=== PATIENT | female | born 1935 | race Caucasian/White ===

== ENCOUNTER → 2016-09-18 | Outpatient (CLI) | payer MEDICARE ==
[~2016-09-18] MED LIST: ALEN40TA PO; ASPI1TAB69 PO; COZA25TA PO; HYDR12.56 PO; LEVO.05 PO; REFR0.5D4 EACH EYE; ROSU10 PO; THERTAB PO; VALA500T PO
[2016-09-18 07:23] LABS: AUTOMATED NEUTROPHIL # 1.2 TH/MM3 (1.8-7.7); BASOPHIL % 1.2 % (0.0-2.0); EOSINOPHIL % 1.2 % (0.0-4.0); HEMATOCRIT 36.8 % (35.0-46.0); HEMO FLAGS DIFF FINAL; LYMPHOCYTE # 1.4 TH/MM3 (1.0-4.8); MEAN CELL VOLUME 94.9 FL (80.0-100.0); MEAN CORPUSCULAR HEMOGLOBIN 31.8 PG (27.0-34.0); MEAN CORPUSCULAR HGB CONC 33.5 % (32.0-36.0); MONO % 13.7 % (0.0-8.0); NEUT % 38.9 % (16.0-70.0); PLATELET COUNT 198 TH/MM3 (150-450); RED BLOOD COUNT 3.88 MIL/MM3 (4.00-5.30); RED CELL DISTRIBUTION WIDTH 14.6 % (11.6-17.2); WHITE BLOOD COUNT 3.1 TH/MM3 (4.0-11.0)
[2016-09-18 08:01] LABS: ALKALINE PHOSPHATASE 65 U/L (45-117); ALT (GPT) 46 U/L (10-53); ANION GAP 7 MEQ/L (5-15); AST (GOT) 34 U/L (15-37); BICARBONATE 28.4 MEQ/L (21.0-32.0); BLOOD UREA NITROGEN 18 MG/DL (7-18); CHLORIDE 107 MEQ/L (98-107); GLOMERULAR FILTRATION RATE 67 ML/MIN (>89); GLUCOSE,FASTING 90 MG/DL (74-99); POTASSIUM 4.6 MEQ/L (3.5-5.1); SODIUM (NA) 142 MEQ/L (136-145); TOTAL BILIRUBIN ADULT 0.2 MG/DL (0.2-1.0)
== END ==
LOC: CLAB 06:51
PROVIDERS: ATTEND Allergy & Immunology
DX: M19.90 Unspecified osteoarthritis, unspecified site (principal); M75.00 Adhesive capsulitis of unspecified shoulder; G70.00 Myasthenia gravis without (acute) exacerbation; Z79.899 Other long term (current) drug therapy
CPT/HCPCS: 36415; 80053; 84443; 85025

== ENCOUNTER → 2016-10-09 | Outpatient (CLI) | payer MEDICARE ==
[2016-10-09 07:19] LABS: BICARBONATE 27.3 MEQ/L (21.0-32.0); POTASSIUM 4.2 MEQ/L (3.5-5.1)
== END ==
LOC: CLAB 06:36
PROVIDERS: ATTEND Internal Medicine Interventional Cardiology
DX: I25.118 Atherosclerotic heart disease of native coronary artery with other forms of angina pectoris (principal); R94.31 Abnormal electrocardiogram [ECG] [EKG]
CPT/HCPCS: 36415; 80048

== ENCOUNTER → 2017-03-12 | Outpatient (CLI) | payer MEDICARE ==
[~2017-03-12] MED LIST changes: -ASPI1TAB69 PO; +ASPI81TA5 PO
[2017-03-12 07:23] LABS: AUTOMATED NEUTROPHIL # 0.6 TH/MM3 (1.8-7.7); EOSINOPHIL % 0.5 % (0.0-4.0); HEMATOCRIT 36.5 % (35.0-46.0); LYMPH % 54.1 % (9.0-44.0); MEAN CELL VOLUME 95.7 FL (80.0-100.0); MEAN CORPUSCULAR HEMOGLOBIN 31.6 PG (27.0-34.0); MONO % 13.9 % (0.0-8.0); NEUT % 30.5 % (16.0-70.0); PLATELET COUNT 195 TH/MM3 (150-450); RED BLOOD COUNT 3.81 MIL/MM3 (4.00-5.30); RED CELL DISTRIBUTION WIDTH 14.6 % (11.6-17.2); WHITE BLOOD COUNT 1.9 TH/MM3 (4.0-11.0)
[2017-03-12 07:29] LABS: HEMO FLAGS AUTO DIFF
[2017-03-12 07:38] LABS: ANION GAP 7 MEQ/L (5-15); AST (GOT) 24 U/L (15-37); BICARBONATE 26.8 MEQ/L (21.0-32.0); BLOOD UREA NITROGEN 15 MG/DL (7-18); CHLORIDE 108 MEQ/L (98-107); GLOMERULAR FILTRATION RATE 78 ML/MIN (>89); GLUCOSE,FASTING 80 MG/DL (74-99); POTASSIUM 4.1 MEQ/L (3.5-5.1); SODIUM (NA) 142 MEQ/L (136-145)
[2017-03-12 07:48] LABS: ALKALINE PHOSPHATASE 67 U/L (45-117); ALT (GPT) 31 U/L (10-53); HDL CHOLESTEROL 42.3 MG/DL (40.0-60.0); LDL CHOLESTEROL 67 MG/DL (0-99); TOTAL BILIRUBIN ADULT 0.4 MG/DL (0.2-1.0)
[2017-03-12 08:56] LABS: BANDS 4 % (0-6); BASOPHILS 1 % (0-2); NEUTROPHIL # MANUAL DIFF 0.5 TH/MM3 (1.8-7.7); POLYS (SEG NEUTROPHILS) 24 % (16-70); WBC DIFF SAMPLE 100
[2017-03-12 08:57] LABS: OVALOCYTES 2+ (NORMAL)
[2017-03-12 09:00] LABS: SCAN/DIFF FINAL DIFF MANUAL
== END ==
LOC: CLAB 06:36
PROVIDERS: ATTEND Allergy & Immunology
DX: I25.118 Atherosclerotic heart disease of native coronary artery with other forms of angina pectoris (principal); R94.31 Abnormal electrocardiogram [ECG] [EKG]; M35.00 Sjogren syndrome, unspecified; E03.9 Hypothyroidism, unspecified; M46.96 Unspecified inflammatory spondylopathy, lumbar region; D72.818 Other decreased white blood cell count
CPT/HCPCS: 36415; 80053; 80061; 84443; 85007; 85027

== ENCOUNTER → 2017-05-22 | Outpatient (CLI) | payer MEDICARE ==
[~2017-05-22] MED LIST changes: -ASPI81TA5 PO; +ECASA81 PO
[2017-05-22 07:40] LABS: HDL CHOLESTEROL 41.2 MG/DL (40.0-60.0)
== END ==
LOC: CLAB 06:44
DX: E03.9 Hypothyroidism, unspecified (principal); E78.00 Pure hypercholesterolemia, unspecified
CPT/HCPCS: 36415; 80061; 84443

== ENCOUNTER → 2017-09-16 | Outpatient (CLI) | payer MEDICARE ==
[2017-09-16 07:05] LABS: AUTOMATED NEUTROPHIL # 0.9 TH/MM3 (1.8-7.7); BASOPHIL % 0.7 % (0.0-2.0); EOSINOPHIL % 0.4 % (0.0-4.0); HEMATOCRIT 36.4 % (35.0-46.0); HEMOGLOBIN 12.4 GM/DL (11.6-15.3); LYMPH % 45.5 % (9.0-44.0); LYMPHOCYTE # 1.2 TH/MM3 (1.0-4.8); MEAN CELL VOLUME 96.4 FL (80.0-100.0); MEAN CORPUSCULAR HEMOGLOBIN 32.8 PG (27.0-34.0); MONO % 18.6 % (0.0-8.0); MONOCYTE # 0.5 TH/MM3 (0-0.9); NEUT % 34.8 % (16.0-70.0); PLATELET COUNT 261 TH/MM3 (150-450); RED BLOOD COUNT 3.78 MIL/MM3 (4.00-5.30); RED CELL DISTRIBUTION WIDTH 14.2 % (11.6-17.2); WHITE BLOOD COUNT 2.7 TH/MM3 (4.0-11.0)
[2017-09-16 07:29] LABS: ALBUMIN 3.9 GM/DL (3.4-5.0); ALT (GPT) 26 U/L (10-53); AST (GOT) 19 U/L (15-37); BICARBONATE 27.9 MEQ/L (21.0-32.0); CALCIUM 9.1 MG/DL (8.5-10.1); CHLORIDE 108 MEQ/L (98-107); CREATININE 0.73 MG/DL (0.50-1.00); GLOMERULAR FILTRATION RATE 77 ML/MIN (>89); GLUCOSE,FASTING 85 MG/DL (74-99); SODIUM (NA) 141 MEQ/L (136-145)
[2017-09-16 07:35] LABS: ALKALINE PHOSPHATASE 67 U/L (45-117); BLOOD UREA NITROGEN 16 MG/DL (7-18); TOTAL BILIRUBIN ADULT 0.4 MG/DL (0.2-1.0); TOTAL PROTEIN 7.6 GM/DL (6.4-8.2)
[2017-09-16 08:47] LABS: BASOPHILS 1 % (0-2); LYMPHOCYTES 51 % (9-44); MONOCYTES 16 % (0-8); NEUTROPHIL # MANUAL DIFF 0.9 TH/MM3 (1.8-7.7); POLYS (SEG NEUTROPHILS) 32 % (16-70)
[2017-09-16 08:48] LABS: OVALOCYTES 1+ (NORMAL)
== END ==
LOC: CLAB 06:42
PROVIDERS: ATTEND Allergy & Immunology
DX: M35.00 Sjogren syndrome, unspecified (principal); M16.0 Bilateral primary osteoarthritis of hip; I25.111 Atherosclerotic heart disease of native coronary artery with angina pectoris with documented spasm; I34.0 Nonrheumatic mitral (valve) insufficiency
CPT/HCPCS: 36415; 80053; 85007; 85027

== ENCOUNTER → 2017-10-09 | Outpatient (CLI) | payer MEDICARE ==
[2017-10-09 07:09] LABS: AUTOMATED NEUTROPHIL # 0.7 TH/MM3 (1.8-7.7); BASOPHIL % 1.2 % (0.0-2.0); EOSINOPHIL % 0.4 % (0.0-4.0); HEMATOCRIT 34.3 % (35.0-46.0); HEMOGLOBIN 11.9 GM/DL (11.6-15.3); LYMPH % 39.9 % (9.0-44.0); LYMPHOCYTE # 0.7 TH/MM3 (1.0-4.8); MEAN CORPUSCULAR HEMOGLOBIN 32.7 PG (27.0-34.0); MEAN CORPUSCULAR HGB CONC 34.8 % (32.0-36.0); MEAN PLATELET VOLUME 7.1 FL (7.0-11.0); MONO % 18.2 % (0.0-8.0); MONOCYTE # 0.3 TH/MM3 (0-0.9); NEUT % 40.3 % (16.0-70.0); PLATELET COUNT 243 TH/MM3 (150-450); RED BLOOD COUNT 3.64 MIL/MM3 (4.00-5.30); WHITE BLOOD COUNT 1.7 TH/MM3 (4.0-11.0)
[2017-10-09 07:38] LABS: BICARBONATE 26.2 MEQ/L (21.0-32.0); CREATININE 0.63 MG/DL (0.50-1.00)
[2017-10-09 07:53] LABS: BANDS 3 % (0-6); BASOPHILS 1 % (0-2); LYMPHOCYTES 30 % (9-44); MONOCYTES 12 % (0-8); OVALOCYTES 1+ (NORMAL); POLYS (SEG NEUTROPHILS) 54 % (16-70)
[2017-10-09 10:24] LABS: BACTERIA, URINE MANY /hpf; BILIRUBIN, URINE NEG (NEG); BLOOD, URINE NEG (NEG); CALCIUM OXALATE CRYSTALS,URINE MANY /hpf; GLUCOSE,URINE NEG (NEG); KETONE, URINE TRACE mg/dL (NEG); MUCUS URINE MANY /lpf (OCC); NITRITE,URINE POS (NEG); SQUAMOUS EPITHELIAL CELL URINE <1 /hpf (0-5); URINE COLOR YELLOW (YELLW/STRAW); URINE LEUKOCYTE ESTERASE MOD (NEG)
== END ==
LOC: CLAB 06:37
PROVIDERS: ATTEND Internal Medicine Interventional Cardiology
DX: Z01.818 Encounter for other preprocedural examination (principal); M16.12 Unilateral primary osteoarthritis, left hip; N39.0 Urinary tract infection, site not specified; B96.20 Unspecified Escherichia coli [E. coli] as the cause of diseases classified elsewhere
CPT/HCPCS: 36415; 80048; 81001; 85007; 85027; 87077; 87086; 87186

== ENCOUNTER 2017-10-20 16:00 | Inpatient (IN) | payer MEDICARE ==
[~2017-10-20] VITALS: Ht 160 cm; Wt 56.0 kg
[2017-10-27] MEDS ORDERED: LIDOCAINE HCL 1% PF 5 ML SYRINGE OTHER ONE (12:00)
[2017-10-27] MEDS ORDERED: PHENYLEPH/NS 1000 MCG/10 ML SYR IV ONE (12:00)
[2017-10-27] MEDS ORDERED: DEXAMETHASONE SOD PHOS 4 MG/ML VIAL IV ONE (12:00)
[2017-10-27] MEDS ORDERED: ROCURONIUM INJ 50 MG/5 ML SYRINGE IV PUSH ONE (12:00)
[2017-10-27] MEDS ORDERED: PROPOFOL 200 MG/20 ML AMP IV ONE (12:00)
[2017-10-27] MEDS ORDERED: ONDANSETRON HCL 4 MG/2 ML VIAL IV ONE (12:00)
[2017-10-27] MEDS ORDERED: NEOSTIGMINE 5 MG/5 ML SYRINGE IV PUSH ONE (12:00)
[2017-10-27] MEDS ORDERED: LACTATED RINGER'S 1000 ML INJ 1,000 ML IV ONE (12:00)
[2017-10-27] MEDS ORDERED: GLYCOPYRROLATE 1 MG/5 ML SYRINGE IV PUSH ONE (12:00)
[2017-10-27] MEDS ORDERED: METOPROLOL TARTRATE 25 MG TAB PO PRN (12:15)
[2017-10-27] MEDS ORDERED: SODIUM CHLORID 0.9% 500 ML IV PRN (12:15)
[2017-10-27] MEDS ORDERED: CHLORHEXIDINE GLUCONATE 4% SOLN 120 ML BTL TOPICAL SCH (12:15)
[2017-10-27] MEDS ORDERED: CHLORHEXIDINE GLUCONATE 2 % 1 PACK (2 CLOTHS) TOPICAL PRN (12:15)
[2017-10-27] MEDS ORDERED: VANCOMYCIN 1000 MG/NS 250 ML (for <70 kg) IV SCH ×2 (12:15)
[2017-10-27] MEDS ORDERED: LACTATED RINGER'S 1000 ML IV PRN (12:15)
[2017-10-27] MEDS ORDERED: ceFAZolin 2 GM PREMIX 50 ML IV SCH (12:15)
[2017-10-27] MEDS ORDERED: POVIDONE IODINE 5% (ANTISEPSIS KIT) 4 APPLICATIONS EACH NARE PRN (12:15)
[2017-10-27] MEDS ORDERED: GENTAMICIN SULFATE 80 MG/2 ML VIAL ONE (12:22)
[2017-10-27] MEDS ORDERED: TYLE325T PO (12:51)
[2017-10-27] MEDS ORDERED: ACETAMINOPHEN 1000 MG/100 ML 100 ML IV ONE (13:25)
[2017-10-27] MEDS ORDERED: ceFAZolin INJ 1,000 MG VIAL ONE (14:15)
--- NOTE | 2017-10-27 17:10 | HHI.PR ---
Immediate Post Op Note Procedure Date: October 27, 2017 Pre Op Diagnosis: L Hip OA Post Op Diagnosis: Same Surgeon: Jeff Segura MD Surveillance Dual Rate Officer(s): Waleska Saleh PA-C Procedure: L THR Complications: None Specimen(s) removed: L Hip femoral head/neck Estimated blood loss: 300 cc Anesthesia: General Drains: None Patient to: SDS Patient Condition: Good Implant/Devices: SEE IMPLANT LOG (if applicable) Date/Time of Procedure: SEE SURGICAL CARE RECORD Jeff Segura MD October 27, 2017 17:10
[2017-10-27] MEDS ORDERED: WALKER WHEELS/F1 MIS (17:12)
[2017-10-27] MEDS ORDERED: MIDAZOLAM HCL 2 MG/2 ML VIAL ONE (17:14)
[2017-10-27] MEDS ORDERED: ONDANSETRON HCL 4 MG/2 ML VIAL IVP PRN (17:15)
[2017-10-27] MEDS ORDERED: ACETAMINOPHEN 325 MG TAB PO PRN (17:15)
[2017-10-27] MEDS ORDERED: ZOLPIDEM TARTRATE 5 MG TAB PO PRN (17:15)
[2017-10-27] MEDS ORDERED: Post-op Orders (for Pharmacy) XX ONE (17:15)
[2017-10-27] MEDS ORDERED: MORPHINE SULFATE 8 MG/ML INJ IV PUSH PRN (17:15)
[2017-10-27] MEDS ORDERED: ALUMINUM/MAGNESIUM/SIMETH 30 ML CUP PO PRN (17:15)
[2017-10-27] MEDS ORDERED: *morphine SULFATE 4 MG/ML PERIprocedure ONLY ONE ×2 (17:26→17:33)
[2017-10-27] MEDS ORDERED: DO NOT ADM ANY ANTICOAGULANT DRUGS PRN (18:00)
[2017-10-27] MEDS: LACTATED RINGER'S 1000 ML INJ 1,000 ML IV SCH (18:00)
--- NOTE | 2017-10-27 18:36 | RADRPT ---
EXAM DATE/TIME: 10/27/2017 17:36 [place] COMPARISON: No previous studies available for comparison. INDICATIONS : Post op left hip replacement. MEDICAL HISTORY : Unobtainable. SURGICAL HISTORY : Left hip replacement. ENCOUNTER: Initial ACUITY: 1 day PAIN SCORE: 2/10 LOCATION: Left hip FINDINGS: Left total hip arthroplasty is noted. Hardware is intact. Alignment is anatomic. The adjacent pelvis is unremarkable. Contralateral right hip is notable for moderate degenerative arthritic change. CONCLUSION: Satisfactory appearance post left OREN Chao Jiménez MD on October 27, 2017 at 18:32 Board Certified Radiologist. This report was verified electronically.
[2017-10-27 19:13] VITALS: BP 133/60; PULSE 62; RESP 18; TEMP 97.7; O2SAT 99
--- NOTE | 2017-10-27 19:47 | MP ---
cc: Jeff Segura MD, Evan D Barratellum, Dodd, Paul M MD DATE OF OPERATION: 10/27/2017 PREOPERATIVE DIAGNOSIS: Left hip severe osteoarthritis, possible osteonecrosis. POSTOPERATIVE DIAGNOSIS: Left hip severe osteoarthritis, possible osteonecrosis. PROCEDURE PERFORMED: Left total hip arthroplasty. SURGEON: Jeff Segura MD RADIO ELECTRICIAN: Waleska Saleh PA-C ANESTHESIA: General. ESTIMATED BLOOD LOSS: 300 mL COMPLICATIONS: None. SPECIMENS: Left hip femoral head, femoral neck. CONDITION: Stable. PLAN AND ACTIVITIES: Per orders. DESCRIPTION OF PROCEDURE: My dental assistant, Waleska Saleh PA-C, was present for the entire surgical case. She was medically necessary for the entire case because of the complexity of the case and to facilitate the performance of the procedure. back tables was not of the skill set for this case to manipulate the instruments, e.g., the multiple different type of soft tissue retractors and trial implants. The patient was brought in the operating room and had satisfactory anesthesia by the Department of Anesthesia. The patient was carefully placed into the lateral decubitus position. All pressure points were well padded. The left hip and lower extremity was prepped and draped in the usual sterile manner. A small posterolateral exposure to the hip was made. All bleeders were then coagulated down to subcutaneous skin tissue. The fascia malcom and gluteus patricia was incised in line with the skin incision. Charnley retractor was placed in the wound in order to have better exposure. Great care was made to protect the sciatic nerve throughout the entire operative case. The short external rotators was removed as a group. Hip abductors were preserved. The capsule was incised and the hip was dislocated posteriorly. The patient was found to have severe osteoarthritis with synovitis. Osteotomy in the neck was made at appropriate level and the hip was sent to pathology for final histological diagnosis. Exposure of the acetabulum made. The acetabulum, labrum and capsule were surgically excised. Using hemispherical reamers, initially the hip was somewhat medialized. It was sequentially reamed to 47 mm in outer diameter down to good subchondral plate. Trial reduction made with a bicentric cup in a press-fit type manner. It was found to be excellent fit. Exposure of the proximal femur was used. Using the [employer] Companyloc system, it was sequentially broached to a #5 broach. A standard offset +3 neck. Hip was reduced, 28 mm head. The hip was reduced. The patient was found to have excellent correction of her limb length discrepancy. She did have a significant limb length discrepancy preoperatively. The patient was found to have also excellent stability to the hip with satisfactory range of motion. The hip was then again dislocated posteriorly and all trial components were removed. The hip and the wound was then irrigated again with copious amounts of sterile saline, antibiotic solution. Using the [employer] Taperloc system, the real prosthesis was placed in approximately 15 degrees of anteversion. A #5 Taperloc stem, standard offset with an excellent "fit and fill." A +3 neck, 28 mm ball was assembled onto the trunnion. The hip was then reduced. The patient was found to have satisfactory correction of her significant preoperative leg length discrepancy, satisfactory stability of the hip and satisfactory range of motion. The short external rotators were repaired back to the greater trochanter drill holes using #2 Ti-Cron suture. The fascia malcom and gluteus max was also incised in line with the skin incision using a #2 Ti-Cron suture. Subcuticular layers with 0 Vicryl and 2-0 Vicryl, running subcuticular 2-0 nylon stitch. Sterile dressings were applied. The patient tolerated the procedure well and arrived in the recovery room in stable and satisfactory condition. MD KEYA Villalta/ESTHER/diane , 05:00 PM , 05:47 PM GUA[place]
[2017-10-27] MEDS: ASPIRIN EC 81 MG TABEC PO SCH (20:39)
[2017-10-27] MEDS: ACETAMINOPHEN/HYDROcodone 325 MG/5 MG TAB PO PRN (20:39)
[2017-10-27] MEDS: MORPHINE SULFATE 4 MG/ML INJ IV PRN (23:24)
[2017-10-28] VITALS (7 sets, daily range): BP systolic 97–135; BP diastolic 51–64; PULSE 78–104; RESP 17–18; TEMP 97.2–99.3; O2SAT 92–98
[2017-10-28] MEDS: ACETAMINOPHEN/HYDROcodone 325 MG/5 MG TAB PO PRN ×6 (01:36→21:49)
[2017-10-28] MEDS: MORPHINE SULFATE 4 MG/ML INJ IV PRN (04:24)
[2017-10-28] MEDS: LEVOTHYROXINE SODIUM 50 MCG TAB PO SCH (05:18)
[2017-10-28] MEDS: LACTATED RINGER'S 1000 ML INJ 1,000 ML IV SCH ×2 (06:30→19:00)
--- NOTE | 2017-10-28 07:13 | PD.ORT.PN ---
Subjective Subjective Remarks POD # 1 L THR C/O post op pain No SOB;no chest pain Explained patient,2 daughters,2 sisters operative findings;answered multiple questions Objective Vitals Vital Signs Date Time Temp Pulse Resp B/P (MAP) Pulse Ox O2 Delivery O2 Flow Rate FiO2 10/28/17 03:55 97.8 93 18 109/58 (75) 98 10/28/17 00:26 97.2 78 18 135/64 (87) 98 10/27/17 19:13 97.7 62 18 133/60 (84) 99 10/27/17 18:28 97.7 50 16 115/56 (75) 100 Nasal Cannula 2 10/27/17 17:45 97.7 53 16 139/63 (88) 100 Room Air 10/27/17 17:30 97.7 55 16 142/65 (90) 100 Nasal Cannula 2 10/27/17 17:15 97.7 73 16 135/63 (87) 100 Nasal Cannula 2 10/27/17 17:04 97.7 88 16 139/72 (94) 100 Nasal Cannula 2 10/27/17 12:20 99.2 73 20 138/62 (87) 100 I/O 10/27/17 10/27/17 10/27/17 10/28/17 10/28/17 10/28/17 07:00 15:00 23:00 07:00 15:00 23:00 Intake Total 2850 ml 480 ml Output Total 300 ml Balance 2550 ml 480 ml Intake Oral 480 ml IV Total 1250 ml Other 1600 ml Output Estimated Blood Loss 300 ml # Voids 1 2 # Bowel Movements 0 Objective Remarks N/V intact dressings dry No LLD Assessment & Plan Assessment and Plan Ortho stable PT/OT/Rehab today Would prefer no avery because history leukopenia and concern of developing post op UTI Case Mx for evaluation [facility] in-patient rehab Jeff Segura MD October 28, 2017 07:13
[2017-10-28] MEDS ORDERED: NON-FORMULARY DRUG (Rosuvastatin (Crestor) 10 MG) PO SCH (09:00)
[2017-10-28] MEDS: valACYclovir HCL 500 MG TAB PO SCH (09:17)
[2017-10-28] MEDS: ATORVASTATIN 20 MG TAB PO SCH (09:18)
[2017-10-28] MEDS: LOSARTAN 25 MG TAB PO SCH (09:18)
[2017-10-28] MEDS: HYDROCHLOROTHIAZIDE 12.5 MG CAP PO SCH (09:18)
[2017-10-28] MEDS: ASPIRIN EC 81 MG TABEC PO SCH ×2 (09:18→21:48)
--- NOTE | 2017-10-28 09:38 | PD.CONS ---
HPI Service [facility] Hospitalists Consult Requested By Dr. Segura Reason for Consult Medical management Primary Care Physician Fox Martin M.D. Diagnoses: (1) Sjogrens syndrome (2) Osteoarthritis of left hip (3) Herpes simplex keratitis, left eye History of Present Illness The patient is an 82 year old female admitted for left hip arthroplasty. Hospitalist consult was requested for medical management. The patient reports a history of Sjogren's syndrome, leukopenia. She denies history of heart disease, diabetes. She does have hypertension and hyperlipidemia. She reports a history of shingles that affected her left eye. She is on chronic Valtrex. She states that her pain is well controlled at this time. She denies chest pain or dyspnea. She reports a RLQ hernia that needs to be repaired, but she was advised to have the hip replaced first. Review of Systems Constitutional: DENIES: Fever, Chills, Night Sweats Eyes: DENIES: Blurred vision, Vision loss Ears, nose, mouth, throat: DENIES: Hearing loss Respiratory: DENIES: Cough, Wheezing, Sputum production, Shortness of breath Cardiovascular: DENIES: Chest pain, Palpitations, Dyspnea on Exertion, Lower Extremity Edema Gastrointestinal: DENIES: Abdominal pain, Constipation, Diarrhea, Nausea, Vomiting Genitourinary: DENIES: Urinary frequency, Urinary incontinence, Urgency, Hematuria, Dysuria, Nocturia Musculoskeletal: COMPLAINS OF: Joint pain, DENIES: Muscle aches Integumentary: DENIES: Pruritus, Rash Hematologic/lymphatic: DENIES: Bruising Neurologic: DENIES: Headache Past Family Social History Allergies: Coded Allergies: sulfamethoxazole (Verified Allergy, Severe, Itching, 02/11/17) trimethoprim (Verified Allergy, Severe, Itching, 02/11/17) Sulfa (Sulfonamide Antibiotics) (Verified Allergy, Intermediate, Rash, ) Past Medical History Sjogren's syndrome Hypertension Hyperlipidemia History of shingles Past Surgical History section 1972 Appendectomy 1954 Surgical procedure on left neck muscle in the Reported Medications Aspirin 81 mg daily Lipitor 20 mg daily HCTZ 12.5 mg daily Synthroid 50 mcg daily Losartan 25 mg daily Valtrex 500 mg daily Family History Father at age 95 over an aneurysm rupture. Diabetes Social History Smoked cigarettes for 4 years while in college. Quit many years ago. Drinks 2 glasses of wine per week. No illicit drug use. Physical Exam Vital Signs Vital Signs Date Time Temp Pulse Resp B/P (MAP) Pulse Ox O2 Delivery O2 Flow Rate FiO2 10/28/17 08:00 99.3 98 17 111/53 (72) 96 10/28/17 03:55 97.8 93 18 109/58 (75) 98 10/28/17 00:26 97.2 78 18 135/64 (87) 98 10/27/17 19:13 97.7 62 18 133/60 (84) 99 10/27/17 18:28 97.7 50 16 115/56 (75) 100 Nasal Cannula 2 10/27/17 17:45 97.7 53 16 139/63 (88) 100 Room Air 10/27/17 17:30 97.7 55 16 142/65 (90) 100 Nasal Cannula 2 10/27/17 17:15 97.7 73 16 135/63 (87) 100 Nasal Cannula 2 10/27/17 17:04 97.7 88 16 139/72 (94) 100 Nasal Cannula 2 10/27/17 12:20 99.2 73 20 138/62 (87) 100 Physical Exam GENERAL: Elderly female in no acute distress. HEENT: Normocephalic, atraumatic. Pupils equal, round and reactive. Extraocular movements intact. No scleral icterus. No injection or drainage. Oropharynx is clear. Mucous membranes are moist. CARDIOVASCULAR: Regular rate and rhythm without murmurs, gallops, or rubs. RESPIRATORY: Clear to auscultation. No wheezes, rales, or rhonchi. Breathing is non-labored. GASTROINTESTINAL: Abdomen soft, nondistended. Mildly tender in RLQ. EXTREMITIES: No lower extremity edema. No calf tenderness. CHELSIE hose. Left leg in immobilization splint. PSYCH: Alert and oriented x 3. Imaging Last Impressions Hip and Pelvis X-Ray 10/27/17 0000 Signed Impressions: Service Date/Time: Friday, October 27, 2017 17:36 - CONCLUSION: Satisfactory appearance post left OREN Chao Jiménez MD Assessment and Plan Assessment and Plan 1. Osteoarthritis: S/P left total hip arthroplasty. Management per orthopedic surgery. Continue pain control, PT, bowel regimen. 2. Hypertension: Continue HCTZ, losartan. BP well controlled. 3. Hyperlipidemia: Continue statin. 4. History of shingles affecting left eye: Continue daily Valtrex. 5. Sjogren's syndrome: Chronic. Monitor. Continue Refresh eye drops. 6. Hypothyroidism: Continue Synthroid. 7. DVT prophylaxis: Aspirin. Discharge plan per orthopedic surgery. Will benefit from rehab. Problem Qualifiers (1) Osteoarthritis of left hip: Qualified Codes: M16.12 - Unilateral primary osteoarthritis, left hip Miles Garcia MD October 28, 2017 09:38
[2017-10-28] MEDS: POLYETHYLENE GLYCOL 17 GM PKG PO SCH ×2 (14:00→17:48)
[2017-10-28 17:43] LABS: HEMATOCRIT 27.4 % (35.0-46.0); HEMOGLOBIN 9.7 GM/DL (11.6-15.3)
[2017-10-28] MEDS: DOCUSATE SODIUM 100 MG CAP PO SCH (21:48)
[2017-10-28] MEDS: CARBOXYMETHYLCELL SOD 0.5% OPTH SOLN 15 ML BTL EACH EYE SCH ×2 (21:50→21:51)
[2017-10-29] MEDS: ACETAMINOPHEN/HYDROcodone 325 MG/5 MG TAB PO PRN ×5 (02:07→21:38)
[2017-10-29] MEDS: LEVOTHYROXINE SODIUM 50 MCG TAB PO SCH (06:19)
--- NOTE | 2017-10-29 07:20 | PD.ORT.PN ---
Subjective Subjective Remarks pt complains of post op hip pain, seen with 3 family members in room Objective Vitals Vital Signs Date Time Temp Pulse Resp B/P (MAP) Pulse Ox O2 Delivery O2 Flow Rate FiO2 10/28/17 23:32 99.1 101 17 121/58 (79) 92 10/28/17 19:48 98.9 104 17 114/57 (76) 95 10/28/17 16:00 98.5 87 17 97/51 (66) 96 10/28/17 12:00 98.3 94 17 117/56 (76) 98 10/28/17 08:00 99.3 98 17 111/53 (72) 96 I/O 10/28/17 10/28/17 10/28/17 10/29/17 10/29/17 10/29/17 07:00 15:00 23:00 07:00 15:00 23:00 Intake Total 480 ml 100 ml 480 ml 480 ml Output Total 200 ml 200 ml Balance 480 ml -100 ml 280 ml 480 ml Intake Oral 480 ml 480 ml 480 ml IV Total 100 ml Output Urine Total 200 ml 200 ml # Voids 2 3 1 # Bowel Movements 0 0 Result Diagram: 10/28/17 1703 Objective Remarks patient appears comfortable left hip dressing dry and intact, ice in place N/V intact No LLD Assessment & Plan Assessment and Plan POD # 2 s/p L OREN Ortho stable PT/OT/Rehab today prefer discharge to [place] in patient rehab, her PCP felt she was at very high risk secondary to her immunosuppression to go to any other type of rehab if patient is not accepted at [place], will need to be discharged to SNF b/c patient states she will be unable to go home with [facility] answered all questions from family members anticipate discharge Waleska Saleh October 29, 2017 07:20
[2017-10-29] MEDS ORDERED: BEDSIDE COMMODE1 MI1 (07:21)
[2017-10-29] MEDS: LACTATED RINGER'S 1000 ML INJ 1,000 ML IV SCH ×2 (07:30→20:00)
[2017-10-29 08:00] VITALS: BP 110/57; PULSE 85; RESP 18; TEMP 98.5; O2SAT 96
--- NOTE | 2017-10-29 08:46 | HHI.PR ---
Subjective Remarks Follow-up hypertension, anemia. The patient reports some nausea. She has little appetite. Pain is well controlled. Denies chest pain or dyspnea. Objective Vitals Vital Signs Date Time Temp Pulse Resp B/P (MAP) Pulse Ox O2 Delivery O2 Flow Rate FiO2 10/29/17 08:00 98.5 85 18 110/57 (74) 96 10/29/17 07:25 18 10/28/17 23:32 99.1 101 17 121/58 (79) 92 10/28/17 19:48 98.9 104 17 114/57 (76) 95 10/28/17 16:00 98.5 87 17 97/51 (66) 96 10/28/17 12:00 98.3 94 17 117/56 (76) 98 I/O 10/28/17 10/28/17 10/28/17 10/29/17 10/29/17 10/29/17 07:00 15:00 23:00 07:00 15:00 23:00 Intake Total 480 ml 100 ml 480 ml 480 ml Output Total 200 ml 200 ml Balance 480 ml -100 ml 280 ml 480 ml Intake Oral 480 ml 480 ml 480 ml IV Total 100 ml Output Urine Total 200 ml 200 ml # Voids 2 3 1 # Bowel Movements 0 0 Result Diagram: 10/28/17 1703 Imaging Last Impressions Hip and Pelvis X-Ray 10/27/17 0000 Signed Impressions: Service Date/Time: Friday, October 27, 2017 17:36 - CONCLUSION: Satisfactory appearance post left OREN Chao Jiménez MD Objective Remarks General: Elderly female in no acute distress. Heart: Regular rate and rhythm. No murmur. Lungs: Clear to auscultation bilaterally. No wheezes, rales, or rhonchi. Breathing is nonlabored. Abdomen: Soft, nontender, nondistended. Extremities: No lower extremity edema. SCDs. Psych: Alert and oriented. Neuro: Normal speech. No focal deficits noted. Procedures 10/27/17 left total hip arthroplasty Urinary Catheter: No Vascular Central Line Catheter: No A/P Problem List: (1) Sjogrens syndrome ICD Code: M35.00 - Sicca syndrome, unspecified Status: Acute (2) Osteoarthritis of left hip ICD Code: M16.12 - Unilateral primary osteoarthritis, left hip (3) Herpes simplex keratitis, left eye ICD Code: B00.52 - Herpesviral keratitis Status: Acute Assessment and Plan 1. Osteoarthritis: S/P left total hip arthroplasty. Management per orthopedic surgery. Continue pain control, PT, bowel regimen. 2. Hypertension: Continue HCTZ, losartan. 3. Hyperlipidemia: Continue statin. 4. History of shingles affecting left eye: Continue daily Valtrex. 5. Sjogren's syndrome: Chronic. Monitor. Continue Refresh eye drops. 6. Hypothyroidism: Continue Synthroid. 7. DVT prophylaxis: Aspirin. 8. Mild postoperative anemia: Secondary to acute blood loss associated with surgery. Repeat H&H pending this morning. Discharge Planning Plan is for discharge to inpatient rehab versus SNF, possibly tomorrow. Problem Qualifiers (1) Osteoarthritis of left hip: Qualified Codes: M16.12 - Unilateral primary osteoarthritis, left hip Miles Garcia MD October 29, 2017 08:46
[2017-10-29] MEDS: DOCUSATE SODIUM 100 MG CAP PO SCH ×2 (09:00→21:00)
[2017-10-29] MEDS: CARBOXYMETHYLCELL SOD 0.5% OPTH SOLN 15 ML BTL EACH EYE SCH ×2 (09:00→21:00)
[2017-10-29] MEDS: POLYETHYLENE GLYCOL 17 GM PKG PO SCH (09:00)
[2017-10-29] MEDS: LOSARTAN 25 MG TAB PO SCH (09:46)
[2017-10-29] MEDS: ASPIRIN EC 81 MG TABEC PO SCH ×2 (09:46→21:37)
[2017-10-29] MEDS: HYDROCHLOROTHIAZIDE 12.5 MG CAP PO SCH (09:47)
[2017-10-29] MEDS: valACYclovir HCL 500 MG TAB PO SCH (09:47)
[2017-10-29] MEDS: ATORVASTATIN 20 MG TAB PO SCH (09:47)
[2017-10-29 12:00] VITALS: BP 105/55; PULSE 107; RESP 18; TEMP 98.8; O2SAT 98
[2017-10-29 12:22] LABS: AUTOMATED NEUTROPHIL # 0.9 TH/MM3 (1.8-7.7); BASOPHIL % 0.3 % (0.0-2.0); EOSINOPHIL % 0.3 % (0.0-4.0); HEMATOCRIT 28.3 % (35.0-46.0); HEMOGLOBIN 9.8 GM/DL (11.6-15.3); LYMPH % 31.5 % (9.0-44.0); LYMPHOCYTE # 0.7 TH/MM3 (1.0-4.8); MEAN CELL VOLUME 94.4 FL (80.0-100.0); MEAN CORPUSCULAR HEMOGLOBIN 32.7 PG (27.0-34.0); MEAN CORPUSCULAR HGB CONC 34.6 % (32.0-36.0); MEAN PLATELET VOLUME 6.9 FL (7.0-11.0); MONO % 27.2 % (0.0-8.0); MONOCYTE # 0.6 TH/MM3 (0-0.9); NEUT % 40.7 % (16.0-70.0); PLATELET COUNT 262 TH/MM3 (150-450); RED BLOOD COUNT 2.99 MIL/MM3 (4.00-5.30); WHITE BLOOD COUNT 2.2 TH/MM3 (4.0-11.0)
[2017-10-29 12:59] LABS: BANDS 4 % (0-6); CORRECTED NUCLEATED RBC 1 /100 WBC (0-0); LYMPHOCYTES 36 % (9-44); MONOCYTES 9 % (0-8); NEUTROPHIL # MANUAL DIFF 1.2 TH/MM3 (1.8-7.7); NUCLEATED RED BLOOD CELL 1 (0-0); OVALOCYTES 1+ (NORMAL); POLYS (SEG NEUTROPHILS) 51 % (16-70)
[2017-10-29 14:24] LABS: BICARBONATE 27.3 MEQ/L (21.0-32.0); CALCIUM 8.9 MG/DL (8.5-10.1); CREATININE 0.66 MG/DL (0.50-1.00)
[2017-10-29 16:00] VITALS: BP 118/58; PULSE 93; RESP 18; TEMP 99; O2SAT 95
[2017-10-29 20:00] VITALS: BP 112/57; PULSE 97; RESP 17; TEMP 100; O2SAT 93
[2017-10-29 21:35] VITALS: TEMP 99.1
[2017-10-30 00:01] VITALS: BP 115/55; PULSE 88; RESP 17; TEMP 99.1; O2SAT 94
[2017-10-30] MEDS: ACETAMINOPHEN/HYDROcodone 325 MG/5 MG TAB PO PRN ×3 (02:50→10:52)
[2017-10-30 04:00] VITALS: TEMP 99.6
[2017-10-30] MEDS: LEVOTHYROXINE SODIUM 50 MCG TAB PO SCH (05:34)
--- NOTE | 2017-10-30 06:40 | PD.ORT.PN ---
Subjective Subjective Remarks POD # 3 L THR C/O post op pain No SOB;no chest pain Explained patient and her sister operative findings;answered multiple questions Objective Vitals Vital Signs Date Time Temp Pulse Resp B/P (MAP) Pulse Ox O2 Delivery O2 Flow Rate FiO2 10/30/17 04:00 99.6 10/30/17 00:01 99.1 88 17 115/55 (75) 94 10/29/17 21:35 99.1 10/29/17 20:00 100.0 97 17 112/57 (75) 93 10/29/17 18:54 18 10/29/17 16:00 99.0 93 18 118/58 (78) 95 10/29/17 12:00 98.8 107 18 105/55 (72) 98 10/29/17 08:00 98.5 85 18 110/57 (74) 96 I/O 10/29/17 10/29/17 10/29/17 10/30/17 10/30/17 10/30/17 07:00 15:00 23:00 07:00 15:00 23:00 Intake Total 480 ml 480 ml Balance 480 ml 480 ml Intake Oral 480 ml 480 ml # Voids 1 3 # Bowel Movements 0 1 Result Diagram: 10/29/17 1153 10/29/17 1316 Objective Remarks patient appears comfortable left hip dressing dry and intact, ice in place N/V intact No LLD Assessment & Plan Assessment and Plan POD # 3 s/p L OREN Ortho stable PT/OT/Rehab today Discharge [facility] rehab today answered all questions from family members anticipate discharge today Aspirin EC 81 mg BID x 4 weeks,TEDS for DVT/PE prophylaxsis Jeff Segura MD October 30, 2017 06:40
[2017-10-30 07:34] VITALS: BP 103/41; PULSE 97; RESP 18; TEMP 98.6; O2SAT 95
[2017-10-30] MEDS: ATORVASTATIN 20 MG TAB PO SCH (08:08)
[2017-10-30] MEDS: LOSARTAN 25 MG TAB PO SCH (08:08)
[2017-10-30] MEDS: HYDROCHLOROTHIAZIDE 12.5 MG CAP PO SCH (08:08)
[2017-10-30] MEDS: valACYclovir HCL 500 MG TAB PO SCH (08:08)
[2017-10-30] MEDS: ASPIRIN EC 81 MG TABEC PO SCH (08:08)
[2017-10-30] MEDS ORDERED: ASPI81TA23 PO (08:25)
[2017-10-30] MEDS ORDERED: NORC5TAB PO (08:25)
[2017-10-30] MEDS: LACTATED RINGER'S 1000 ML INJ 1,000 ML IV SCH (08:30)
[2017-10-30] MEDS: CARBOXYMETHYLCELL SOD 0.5% OPTH SOLN 15 ML BTL EACH EYE SCH (09:00)
[2017-10-30] MEDS: POLYETHYLENE GLYCOL 17 GM PKG PO SCH (09:00)
[2017-10-30] MEDS: DOCUSATE SODIUM 100 MG CAP PO SCH (09:00)
[2017-10-30] MEDS ORDERED: PERI PO (22:43)
[2017-10-30] MEDS ORDERED: HYDR-3516 PO (22:43)
[2017-10-30] MEDS ORDERED: ACET325T15 PO (22:43)
== END 2017-10-30 11:50 | DRG 470 ==
LOC: HSDI 10-27 11:14 → N06A 10-27 18:38
PROVIDERS: ADMIT Orthopaedic Surgery Orthopaedic Surgery of the Spine; ATTEND Orthopaedic Surgery Orthopaedic Surgery of the Spine
PROC: 0SRB0JA Replacement of Left Hip Joint with Synthetic Substitute, Uncemented, Open Approach (ICD-10-PCS; principal; 2017-10-27 15:17)
DX: M16.12 Unilateral primary osteoarthritis, left hip (principal); B02.30 Zoster ocular disease, unspecified; I10 Essential (primary) hypertension; D62 Acute posthemorrhagic anemia; M35.00 Sjogren syndrome, unspecified; E78.5 Hyperlipidemia, unspecified; E03.9 Hypothyroidism, unspecified; Z86.19 Personal history of other infectious and parasitic diseases
CPT/HCPCS: 73501; 80048; 83605; 85007; 85014; 85018; 85027; 86850; 86900; 86901; 88304; 88311; 94150; C1776; J0131; J0690; J1100; J1580; J2250; J2270; J2370; J2405; J2710; J3010; J3370; J7050; J7120

== ENCOUNTER 2017-10-30 22:49 | Inpatient (IN) | payer MEDICARE ==
[~2017-10-30] VITALS: Ht 160 cm; Wt 55.9 kg
[~2017-10-30 22:49] MED LIST changes: +ACET325T15 PO; -ALEN40TA PO; +ASPI81TA23 PO; +BEDSIDE COMMODE1 MI1; -ECASA81 PO; +HYDR-3516 PO; +NORC5TAB PO; +PERI PO; +TYLE325T PO; +WALKER WHEELS/F1 MIS
[2017-10-30 23:20] VITALS: BP 119/70; PULSE 95; RESP 16; TEMP 98.1; O2SAT 98
[2017-10-30] MEDS: SODIUM CHLOR 0.9% 1000 ML INJ 1,000 ML IV SCH (23:32)
[2017-10-30] MEDS ORDERED: NALOXONE HCL 0.4 MG/ML AMP IV PUSH PRN (23:45)
[2017-10-30] MEDS ORDERED: SODIUM CHLORIDE 0.9% FLUSH 10 ML FLUSH IV FLUSH PRN (23:45)
[2017-10-30] MEDS ORDERED: ACETAMINOPHEN 325 MG TAB PO PRN ×2 (23:45)
[2017-10-30] MEDS ORDERED: HEPARIN-D5W 25,000 U/250 ML 250 ML IV PRN (23:45)
[2017-10-31] VITALS (9 sets, daily range): BP systolic 114–131; BP diastolic 55–74; PULSE 72–103; RESP 16–20; TEMP 97.4–100.3; O2SAT 98–100
[2017-10-31] MEDS ORDERED: LORazepam 2 MG/ML VIAL PO ONE
[2017-10-31] MEDS ORDERED: HEPARIN 25,000 UNITS-D5W 250 ML - PREMIX IV PRN (00:15)
[2017-10-31] MEDS: LORazepam 0.5 MG TAB PO ONE ×2 (00:20)
[2017-10-31 00:24] LABS: HEMATOCRIT 25.7 % (35.0-46.0); HEMOGLOBIN 8.9 GM/DL (11.6-15.3); MEAN CELL VOLUME 93.8 FL (80.0-100.0); MEAN CORPUSCULAR HEMOGLOBIN 32.4 PG (27.0-34.0); MEAN CORPUSCULAR HGB CONC 34.5 % (32.0-36.0); MEAN PLATELET VOLUME 7.1 FL (7.0-11.0); PLATELET COUNT 250 TH/MM3 (150-450); RED BLOOD COUNT 2.74 MIL/MM3 (4.00-5.30); RED CELL DISTRIBUTION WIDTH 13.4 % (11.6-17.2); WHITE BLOOD COUNT 2.1 TH/MM3 (4.0-11.0)
[2017-10-31 00:34] LABS: INTERNATIONAL NORMALIZED RATIO 1.1 RATIO; PROTHROMBIN TIME - PATIENT 10.8 SEC (9.8-11.6)
--- NOTE | 2017-10-31 01:17 | HHI.HP ---
HPI Service [facility] Primary Care Physician Fox Martin M.D. Admission Diagnosis Pulmonary Embolism . Diagnoses: (1) Pulmonary embolism (2) Status post left hip replacement Chief Complaint: AMS, tachycardia, and low grade fever Travel History International Travel<30 Days: No Contact w/Intl Traveler <30 Da: No History of Present Illness Ms. Morgan is an 82 year old female with a past medical history which includes Sjogren's syndrome,Hypertension, Hyperlipidemia, and left hip osteoarthritis who was [place] [facility] [place] 10[place]30/17 for left hip arthroplasty with Dr. Segura on 10/27/17. She was discharged to [facility] [place] on 10/30/17 for comprehensive rehabilitation and was transferred back [place] [facility] [place] same day for left lower lobe PE. She is admitted to the hospitalist service for medical management. The patient developed AMS, low grade fevers, and tachycardia while at [place]. ABGs were ordered and demonstrated hypoxia. A CT Pulmonary Angiogram was also ordered to evaluate symptoms and showed posterior left lower lobe PE along with multiple areas of emphysematous changes and mild interstitial disease at mid and upper lungs worse on the right. The patient is seen in her hospital room with her daughter and granddaughter at the bedside. The patient was given Ativan 0.5 mg IV to allow for CT scan earlier because of combative behavior. She remains sedated and minimally cooperative with examination and is noncooperative with history (history obtained from EMR). Review of Systems Except as stated in HPI: all other systems reviewed are Neg Past Family Social History Past Medical History Sjogren's syndrome,Hypertension, Hyperlipidemia, and left hip osteoarthritis . Past Surgical History Left hip arthroplasty by Dr. Ybarra 10/27/2017 section Appendectomy Left neck muscle surgery . Reported Medications Reported Meds & Active Scripts Active Eq Acetaminophen (Acetaminophen) 325 Mg Tab 650 Mg PO Q4H PRN Hydrocodone-Acetamin 5-325 mg (Hydrocodone/Acetaminophen) 5 Mg-325 Mg Tablet 1 Tab PO Q6H PRN Gnp Senna Plus 8.6-50 mg (Sennosides-Docusate Sodium) 8.6 Mg-50 Mg Tab 1 Tab PO BID 30 Days Aspirin EC (Aspirin) 81 Mg Tabdr 81 Mg PO BID 28 Days Bedside Commode (Device) 1 Mis Mis Ea .XX DIRECTED Walker with Front Wheels (Device) 1 Mis Mis Ea .XX DIRECTED Valacyclovir (Valacyclovir HCl) 500 Mg Tab 500 Mg PO DAILY Reported Refresh Tears Opth Drops (Carboxymethylcellulose Sodium Opth Drops) 0.5% Drops 1 Drop EACH EYE BID Theralith Xr (Nutritional Supplements) 1 Tab Tab 1 Tab PO DAILY Crestor (Rosuvastatin Calcium) 10 Mg Tab 10 Mg PO DAILY Hydrochlorothiazide 12.5 Mg Tab 12.5 Mg PO DAILY Cozaar (Losartan Potassium) 25 Mg Tab 25 Mg PO DAILY Synthroid (Levothyroxine Sodium) 50 Mcg Tab 50 Mcg PO DAILY . Allergies: Coded Allergies: sulfamethoxazole (Verified Allergy, Severe, Itching, 02/11/17) trimethoprim (Verified Allergy, Severe, Itching, 02/11/17) Sulfa (Sulfonamide Antibiotics) (Verified Allergy, Intermediate, Rash, ) Family History Father at age 95 over an aneurysm rupture . Social History Smoked cigarettes for 4 years while in college. Quit many years ago. Drinks 2 glasses of wine per week. No illicit drug use . Physical Exam Vital Signs Vital Signs Date Time Temp Pulse Resp B/P (MAP) Pulse Ox O2 Delivery O2 Flow Rate FiO2 10/30/17 23:20 98.1 95 16 119/70 (86) 98 Physical Exam CONSTITUTIONAL: This is a pale-appearing, somnolent elderly female patient, in no apparent distress. INTEGUMENTARY: No rashes. Cool and dry. HEAD: Atraumatic. Normocephalic. EYES: No scleral icterus. No injection or drainage. ENT: Nose without bleeding, purulent drainage. NECK: Trachea midline. No JVD or lymphadenopathy. CARDIOVASCULAR: Regular rate and rhythm without murmurs, gallops, or rubs. RESPIRATORY: Breath sounds diminished at bases but equal bilaterally. No wheezes , rales, or rhonchi. GASTROINTESTINAL: Abdomen soft, non-tender, nondistended. No guarding. MUSCULOSKELETAL: Extremities without clubbing, cyanosis, or edema. NEUROLOGICAL: Somnolent, equal strength, facial symmetry. . Laboratory Laboratory Tests Test 10/30/17 23:55 White Blood Count 2.1 Red Blood Count 2.74 Hemoglobin 8.9 Hematocrit 25.7 Mean Corpuscular Volume 93.8 Mean Corpuscular Hemoglobin 32.4 Mean Corpuscular Hemoglobin Concent 34.5 Red Cell Distribution Width 13.4 Platelet Count 250 Mean Platelet Volume 7.1 Prothrombin Time 10.8 Prothromb Time International Ratio 1.1 Activated Partial Thromboplast Time 40.6 Result Diagram: 10/30/17 2355 Imaging Last Impressions Chest X-Ray 10/30/17 0000 Signed Impressions: Service Date/Time: October 13:23 - CONCLUSION: 1. Patchy air space disease medially in the left base with minimal atelectasis of the right hemidiaphragm. 2. Loss of the acromiohumeral intervals bilaterally characteristic of chronic rotator cuff injuries. Martín Miranda MD CT Angiography 10/30/17 0000 Signed Impressions: Service Date/Time: October 20:40 - CONCLUSION: 1. Pulmonary embolus seen at the pulmonary supplying the posterior left lower lobe. 2. Multiple areas of emphysematous change in the lower lungs. 3. Mild interstitial disease at the mid and upper lungs being worse on the right. Chao Partida MD . Caprini VTE Risk Assessment Caprini VTE Risk Assessment: Mod/High Risk (score >= 2) Caprini Risk Assessment Model Point Value = 1 Point Value = 2 Point Value = 3 Point Value = 5 Age 41-60 Minor surgery BMI > 25 kg/m2 Swollen legs Varicose veins or History of unexplained or recurrent spontaneous Oral contraceptives or hormone replacement Sepsis (< 1 month) Serious lung disease, including pneumonia (< 1 month) Abnormal pulmonary function Acute myocardial infarction Congestive heart failure (< 1 month) History of inflammatory bowel disease Medical patient at bed rest Age 61-74 Arthroscopic surgery Major open surgery (> 45 min) Laparoscopic surgery (> 45 min) Malignancy Confined to bed (> 72 hours) Immobilizing plaster cast Central venous access Age >= 75 History of VTE Family history of VTE Factor V Leiden Prothrombin [id number] Lupus anticoagulant Anticardiolipin antibodies Elevated serum homocysteine Heparin-induced thrombocytopenia Other congenital or acquired thrombophilia Stroke (< 1 month) Elective arthroplasty Hip, pelvis, or leg fracture Acute spinal cord injury (< 1 month) Prophylaxis Regimen Total Risk Factor Score Risk Level Prophylaxis Regimen 0-1 Low Early ambulation 2 Moderate Order ONE of the following: *Sequential Compression Device (SCD) *Heparin 5000 units SQ BID 3-4 Higher Order ONE of the following medications: *Heparin 5000 units SQ TID *Enoxaparin/Lovenox 40 mg SQ daily (WT < 150 kg, CrCl > 30 mL/min) *Enoxaparin/Lovenox 30 mg SQ daily (WT < 150 kg, CrCl > 10-29 mL/min) *Enoxaparin/Lovenox 30 mg SQ BID (WT < 150 kg, CrCl > 30 mL/min) AND/OR *Sequential Compression Device (SCD) 5 or more Highest Order ONE of the following medications: *Heparin 5000 units SQ TID (Preferred with Epidurals) *Enoxaparin/Lovenox 40 mg SQ daily (WT < 150 kg, CrCl > 30 mL/min) *Enoxaparin/Lovenox 30 mg SQ daily (WT < 150 kg, CrCl > 10-29 mL/min) *Enoxaparin/Lovenox 30 mg SQ BID (WT < 150 kg, CrCl > 30 mL/min) AND *Sequential Compression Device (SCD) Assessment and Plan Problem List: (1) Pulmonary embolism ICD Code: I26.99 - Other pulmonary embolism without acute cor pulmonale (2) Status post left hip replacement ICD Code: Z96.642 - Presence of left artificial hip joint Status: Acute Assessment and Plan Ms. Morgan is an 82 year old female with a past medical history which includes Sjogren's syndrome,Hypertension, Hyperlipidemia, and left hip osteoarthritis who was [place] [facility] [place] 10/30/17 for left hip arthroplasty with Dr. Segura on 10/27/17. She was discharged to [facility] [place] on 10/30/17 for comprehensive rehabilitation and was transferred back [place] [facility] [place] [place] the same day for left lower lobe PE. She is admitted to the hospitalist service for medical management. Pulmonary Embolism AMS likely secondary to hypoxia - Heparin drip - Supplemental oxygen to maintain oxygen saturation > 92% - recheck ABG and follow results - check TSH - Continue pain control when mental status improves - avoid narcotics for now - continuous cardiac telemetry Osteoarthritis - S/P left total hip arthroplasty 10/27/[address] Segura. - PT - Bowel regimen Hypertension - Continue HCTZ, losartan - monitor BP trend Hyperlipidemia - Continue statin History of shingles affecting left eye - Continue daily Valtrex Sjogren's syndrome, chronic - Continue Refresh eye drops and monitor Hypothyroidism - Continue Synthroid Abdominal hernia - Abdominal binder as needed for patient comfort DVT prophylaxis - Heparin drip Discussed Condition With Patient's daughter, granddaughter, Dr. Packer, and RN . Physician Certification 2 Midnight Certification Type: Admission for Inpatient Services Order for Inpatient Services The services are ordered in accordance with Medicare regulations or non- Medicare payer requirements, as applicable. In the case of services not specified as inpatient-only, they are appropriately provided as inpatient services in accordance with the 2-midnight benchmark. Estimated LOS (days): 3 days is the estimated time the patient will need to remain in the hospital, assuming treatment plan goals are met and no additional complications. Post-Hospital Plan: Home Keke Parikh October 31, 2017 01:17
[2017-10-31] MEDS ORDERED: MAGNESIUM HYDROXIDE SUSP 30 ML CUP PO PRN (03:15)
[2017-10-31] MEDS ORDERED: LACTULOSE SYRUP 20 GM/30 ML CUP PO PRN (03:15)
[2017-10-31] MEDS ORDERED: BISACODYL 10 MG SUPP RECTAL PRN (03:15)
[2017-10-31] MEDS ORDERED: SENNOSIDES 8.6 MG TAB PO PRN (03:15)
[2017-10-31] MEDS: LEVOTHYROXINE SODIUM 50 MCG TAB PO SCH (05:46)
[2017-10-31 07:34] LABS: ALBUMIN 2.3 GM/DL (3.4-5.0); ALKALINE PHOSPHATASE 58 U/L (45-117); ALT (GPT) 18 U/L (10-53); AST (GOT) 20 U/L (15-37); BICARBONATE 29.2 MEQ/L (21.0-32.0); BLOOD UREA NITROGEN 8 MG/DL (7-18); CALCIUM 8.4 MG/DL (8.5-10.1); CHLORIDE 103 MEQ/L (98-107); CREATININE 0.38 MG/DL (0.50-1.00); GLOMERULAR FILTRATION RATE 163 ML/MIN (>89); GLUCOSE,RANDOM 87 MG/DL (74-106); SODIUM (NA) 139 MEQ/L (136-145); TOTAL BILIRUBIN ADULT 0.4 MG/DL (0.2-1.0); TOTAL PROTEIN 6.1 GM/DL (6.4-8.2)
[2017-10-31] MEDS: SODIUM CHLORIDE 0.9% FLUSH 10 ML FLUSH IV FLUSH SCH ×2 (09:00→21:22)
[2017-10-31] MEDS: CARBOXYMETHYLCELL SOD 0.5% OPTH SOLN 15 ML BTL EACH EYE SCH ×2 (09:00→21:00)
[2017-10-31] MEDS: LOSARTAN 25 MG TAB PO SCH (09:07)
[2017-10-31] MEDS: ASPIRIN EC 81 MG TABEC PO SCH ×2 (09:07→21:21)
[2017-10-31] MEDS: ATORVASTATIN 20 MG TAB PO SCH (09:07)
[2017-10-31] MEDS: valACYclovir HCL 500 MG TAB PO SCH (09:07)
[2017-10-31] MEDS: HYDROCHLOROTHIAZIDE 12.5 MG CAP PO SCH (09:07)
[2017-10-31] MEDS: SODIUM CHLOR 0.9% 1000 ML INJ 1,000 ML IV SCH ×2 (10:00→20:00)
[2017-10-31] MEDS ORDERED: POTASSIUM CHLORIDE 25 MEQ EFFERVESCENT TAB PO ONE (15:45)
--- NOTE | 2017-10-31 15:58 | HHI.PR ---
Subjective Remarks Ms. Morgan is an 82 year old female with a past medical history which includes Sjogren's syndrome,Hypertension, Hyperlipidemia, and left hip osteoarthritis who was admitted to [facility] from 10/27/17 to 10/30/17 for left hip arthroplasty with Dr. Segura on 10/27/17. She was discharged to [facility] on 10/30/17 for comprehensive rehabilitation and was transferred back to [facility] the same day for left lower lobe PE. She is admitted to the hospitalist service for medical management. The patient developed AMS, low grade fevers, and tachycardia while at [place]. ABGs were ordered and demonstrated hypoxia. A CT Pulmonary Angiogram was also ordered to evaluate symptoms and showed posterior left lower lobe PE along with multiple areas of emphysematous changes and mild interstitial disease at mid and upper lungs worse on the right. The patient is seen in her hospital room with her daughter and granddaughter at the bedside. The patient was given Ativan 0.5 mg IV to allow for CT scan earlier because of combative behavior. She remains sedated and minimally cooperative with examination and is noncooperative with history (history obtained from EMR). SWITCH TO PO MEDS FOR PULM EMBOLI ADD ELIQUIS 10MG PO BID ADD BOOST TID ADD CHELSIE HOSE CONTINUE HEPARIN UNTIL ELIQUIS 10 MG STARTED BID Objective Vitals Vital Signs Date Time Temp Pulse Resp B/P (MAP) Pulse Ox O2 Delivery O2 Flow Rate FiO2 10/31/17 12:03 Nasal Cannula 2.00 10/31/17 12:00 94 10/31/17 12:00 99.1 103 20 115/55 (75) 98 10/31/17 08:00 90 10/31/17 08:00 98.3 88 20 114/55 (74) 98 10/31/17 04:05 100 Nasal Cannula 2.00 10/31/17 04:00 82 10/31/17 04:00 Nasal Cannula 2.00 10/31/17 02:45 97.4 83 16 119/58 (78) 100 10/31/17 00:00 Nasal Cannula 2.00 10/30/17 23:20 98.1 95 16 119/70 (86) 98 I/O 10/30/17 10/30/17 10/30/17 10/31/17 10/31/17 10/31/17 07:00 15:00 23:00 07:00 15:00 23:00 Intake Total 0 ml Balance 0 ml Intake Oral 0 ml # Voids 2 # Bowel Movements 0 Result Diagram: 10/30/17 2355 10/31/17 0534 Other Results Laboratory Tests Test 10/30/17 23:55 10/31/17 05:34 10/31/17 09:15 White Blood Count 2.1 TH/MM3 Red Blood Count 2.74 MIL/MM3 Hemoglobin 8.9 GM/DL Hematocrit 25.7 % Mean Corpuscular Volume 93.8 FL Mean Corpuscular Hemoglobin 32.4 PG Mean Corpuscular Hemoglobin Concent 34.5 % Red Cell Distribution Width 13.4 % Platelet Count 250 TH/MM3 Mean Platelet Volume 7.1 FL Prothrombin Time 10.8 SEC Prothromb Time International Ratio 1.1 RATIO Activated Partial Thromboplast Time 40.6 SEC 69.2 SEC 73.7 SEC Blood Urea Nitrogen 8 MG/DL Creatinine 0.38 MG/DL Random Glucose 87 MG/DL Total Protein 6.1 GM/DL Albumin 2.3 GM/DL Calcium Level 8.4 MG/DL Alkaline Phosphatase 58 U/L Aspartate Amino Transf (AST/SGOT) 20 U/L Alanine Aminotransferase (ALT/SGPT) 18 U/L Total Bilirubin 0.4 MG/DL Sodium Level 139 MEQ/L Potassium Level 2.9 MEQ/L Chloride Level 103 MEQ/L Carbon Dioxide Level 29.2 MEQ/L Anion Gap 7 MEQ/L Estimat Glomerular Filtration Rate 163 ML/MIN Thyroid Stimulating Hormone 3rd Gen 0.113 uIU/ML Objective Remarks GENERAL: Awake and alert and oriented 3 and talkative and cooperative SKIN: Warm and dry. HEAD: Atraumatic. Normocephalic. EYES: Pupils equal and round. No scleral icterus. No injection or drainage. Extraocular muscles intact tongue is midline ENT: No nasal bleeding or discharge. Mucous membranes pink and moist. Tongue is midline NECK: Trachea midline. No JVD. Neck is supple CARDIOVASCULAR: Regular rate and rhythm. S1-S2 no S3 or S4 RESPIRATORY: No accessory muscle use. Clear to auscultation. Breath sounds equal bilaterally. GASTROINTESTINAL: Abdomen soft, non-tender, nondistended. Hepatic and splenic margins not palpable. MUSCULOSKELETAL: Extremities without clubbing, cyanosis, or edema. No obvious deformities. NEUROLOGICAL: Awake and alert. No obvious cranial nerve deficits. Motor grossly within normal limits. 4 out of 5 muscle strength in the arms and legs. Normal speech. PSYCHIATRIC: Appropriate mood and affect; insight and judgment normal. Medications and IVs Current Medications Sodium Chloride 1,000 ml @ 100 mls/hr Q10H IV Last administered on 10/31/17at 10:00; Start 10/30/17 at 23:32 Sodium Chloride (NS Flush) 2 ml UNSCH PRN IV FLUSH FLUSH AFTER USING IV ACCESS ; Start 10/30/17 at 23:45 Sodium Chloride (NS Flush) 2 ml BID IV FLUSH Last administered on 10/31/17 09: 00; Start 10/31/17 at 09:00 Acetaminophen (Tylenol) 650 mg Q4H PRN PO TEMP > 100.4 Last administered on at 15:33; Start 10/30/17 at 23:45 Naloxone HCl (Narcan Inj) 0.4 mg UNSCH PRN IV PUSH SEE LABEL COMMENTS; Start at 23:45 Heparin Sodium/ Dextrose 250 ml @ 0 mls/hr TITRATE PRN IV Coagulation Management; Start 10/30/17 at 23:45; Status UNV Acetaminophen (Tylenol) 650 mg Q4H PRN PO PAIN SCALE 1 TO 3/temp > 100.4; Start 10/30/17 at 23:45 Aspirin (Ecotrin Ec) 81 mg BID PO Last administered on 10/31/17 09:07; Start 10/31/17 at 09:00 Carboxymethylcellulose Sodium (Refresh Tears 0.5% Opth Soln) 1 drop BID EACH EYE ; Start 10/31/17 at 09:00 Hydrochlorothiazide (Microzide) 12.5 mg DAILY PO Last administered on 09:07; Start 10/31/17 at 09:00 Acetaminophen/ Hydrocodone Bitart ([place] 5-325 Mg) 1 tab Q6H PRN PO PAIN SCALE 4 TO 10; Start 10/30/17 at 23:45 Levothyroxine Sodium (Synthroid) 50 mcg DAILY@0600 PO Last administered on 10/31at 05:46; Start 10/31/17 at 06:00 Losartan Potassium (Cozaar) 25 mg DAILY PO Last administered on 10/31/17 09:07 ; Start 10/31/17 at 09:00 Valacyclovir HCl (Valtrex) 500 mg DAILY PO Last administered on 10/31/17at 09:07 ; Start 10/31/17 at 09:00 Atorvastatin Calcium (Lipitor) 20 mg DAILY PO Last administered on 10/31/17at 09 :07; Start 10/31/17 at 09:00 Lorazepam (Ativan Inj) 0.5 mg ONCE ONCE PO ; Start 10/31/17 at 00:00; Stop at 00:01; Status DC Lorazepam (Ativan) 0.5 mg ONCE ONCE PO ; Start 10/31/17 at 00:00; Stop at 01:14; Status DC Heparin Sodium/ Dextrose 250 ml @ 10 mls/hr TITRATE PRN IV Coagulation Management Last administered on 10/31/17at 00:57; Start 10/31/17 at 00:15 Magnesium Hydroxide (Milk Of Magnesia Liq) 30 ml Q12H PRN PO Mild constipation ; Start 10/31/17 at 03:15 Sennosides (Senokot) 17.2 mg Q12H PRN PO Moderate constipation; Start 10/31/17 at 03:15 Bisacodyl (Dulcolax Supp) 10 mg DAILY PRN RECTAL SEVERE CONSITIPATION; Start at 03:15 Lactulose (Lactulose Liq) 30 ml DAILY PRN PO SEVERE CONSITIPATION; Start at 03:15 A/P Problem List: (1) Pulmonary embolism ICD Code: I26.99 - Other pulmonary embolism without acute cor pulmonale (2) Status post left hip replacement ICD Code: Z96.642 - Presence of left artificial hip joint Status: Acute Assessment and Plan Ms. Morgan is an 82 year old female with a past medical history which includes Sjogren's syndrome,Hypertension, Hyperlipidemia, and left hip osteoarthritis who was admitted to [facility] from 10/27/17 to 10/30/17 for left hip arthroplasty with Dr. Segura on 10/27/17. She was discharged to [facility] on 10/30/17 for comprehensive rehabilitation and was transferred back to [facility] the same day for left lower lobe PE. She is admitted to the hospitalist service for medical management. Pulmonary Embolism AMS likely secondary to hypoxia - Heparin drip- SWITCH TO ELIQUIS 10MG BID FOR PE - Supplemental oxygen to maintain oxygen saturation > 92% - recheck ABG and follow results - check TSH - Continue pain control when mental status improves - avoid narcotics for now - continuous cardiac telemetry Osteoarthritis - S/P left total hip arthroplasty 10/27/[address] Segura. - PT - Bowel regimen Hypertension - Continue HCTZ, losartan - monitor BP trend Hyperlipidemia - Continue statin History of shingles affecting left eye - Continue daily Valtrex Sjogren's syndrome, chronic - Continue Refresh eye drops and monitor Hypothyroidism - Continue Synthroid Abdominal hernia - Abdominal binder as needed for patient comfort DVT prophylaxis - Heparin drip START ELIQUIS 10MG PO BID Discharge Planning PENDING IMPROVEMENT AND BETTER ABILITY TO MOVE Josh Ravi DO October 31, 2017 15:58
--- NOTE | 2017-10-31 16:07 | PQ ---
Physician Query Response Document PATIENT: YAHIR KHALIL : 1935 ADMIT DATE: 10/30/2017 11:10 PM DISCH DATE: RESPONDING PROVIDER #: LEANDRO QUERY TEXT: CDS Clarification Surgical procedure cause complication of pulmonary embolism w/o misadvnt at time of procedure. Other explanation of clinical findings. Unable to determine (no explanation for clinical findings). The medical record reflects the following clinical findings, treatment, and risk factors. * Clinical Indicators Pulmonary embolism , tachycardia, and low grade fever * Risk Factors S/P left total hip arthroplasty 10/27/17 * Treatment Heparin drip o2, pain control, cardiac telemetry The patient's Clinical Indicators include: Please clarify and document your clinical opinion in the progress notes and discharge summary includi ng the definitive and/or presumptive diagnosis (suspected or probable), related to the above clinical findings. Please include clinical findings supporting your diagnosis. Thank you, Viv Ackerman CDS: Viv Ackerman Patient Unit: [id number] Room: 1421 Contact Number: CDS/RN ext. [phone] Query created by: Viv Ackerman on 10/31/2017 3:57 PM RESPONSE TEXT: NOT ABLE TO CLARIFY IF SURGERY ON HIP CAUSED COMPLICATION OF PULMONARY EMBOLISM DUE TO THE LEFT TOTAL HIP ARTHROPLASTY ON 10-27 Electronically signed by: Josh Ravi 10/31/2017 4:04 PM
[2017-10-31] MEDS: APIXABAN 5 MG TABLET PO SCH ×2 (16:24→21:21)
[2017-11-01] VITALS (8 sets, daily range): BP systolic 109–135; BP diastolic 52–61; PULSE 74–85; RESP 16–17; TEMP 97.6–98.3; O2SAT 93–99
[2017-11-01] MEDS: ACETAMINOPHEN/HYDROcodone 325 MG/5 MG TAB PO PRN ×2 (01:37→18:15)
[2017-11-01] MEDS: LEVOTHYROXINE SODIUM 50 MCG TAB PO SCH (05:32)
[2017-11-01] MEDS: SODIUM CHLOR 0.9% 1000 ML INJ 1,000 ML IV SCH (05:32)
[2017-11-01] MEDS: CARBOXYMETHYLCELL SOD 0.5% OPTH SOLN 15 ML BTL EACH EYE SCH ×2 (08:49→21:00)
[2017-11-01] MEDS: SODIUM CHLORIDE 0.9% FLUSH 10 ML FLUSH IV FLUSH SCH ×2 (08:51→21:20)
[2017-11-01] MEDS: APIXABAN 5 MG TABLET PO SCH ×2 (08:51→21:19)
[2017-11-01] MEDS: ATORVASTATIN 20 MG TAB PO SCH (08:51)
[2017-11-01] MEDS: ASPIRIN EC 81 MG TABEC PO SCH ×2 (08:51→21:19)
[2017-11-01] MEDS: valACYclovir HCL 500 MG TAB PO SCH (08:53)
[2017-11-01] MEDS: LOSARTAN 25 MG TAB PO SCH (08:54)
[2017-11-01] MEDS: HYDROCHLOROTHIAZIDE 12.5 MG CAP PO SCH (08:54)
--- NOTE | 2017-11-01 12:36 | HHI.PR ---
Subjective Remarks Ms. Morgan is an 82 year old female with a past medical history which includes Sjogren's syndrome,Hypertension, Hyperlipidemia, and left hip osteoarthritis who was admitted to [facility] from 10/27/17 to 10/30/17 for left hip arthroplasty with Dr. Segura on 10/27/17. She was discharged to [facility] [place] on 10/30/17 for comprehensive rehabilitation and was transferred back to [facility] the same day for left lower lobe PE. She is admitted to the hospitalist service for medical management. The patient developed AMS, low grade fevers, and tachycardia while at [place]. ABGs were ordered and demonstrated hypoxia. A CT Pulmonary Angiogram was also ordered to evaluate symptoms and showed posterior left lower lobe PE along with multiple areas of emphysematous changes and mild interstitial disease at mid and upper lungs worse on the right. The patient is seen in her hospital room with her daughter and granddaughter at the bedside. The patient was given Ativan 0.5 mg IV to allow for CT scan earlier because of combative behavior. She remains sedated and minimally cooperative with examination and is noncooperative with history (history obtained from EMR). SWITCH TO PO MEDS FOR PULM EMBOLI ADD ELIQUIS 10MG PO BID ADD BOOST TID ADD CHELSIE HOSE CONTINUE HEPARIN UNTIL ELIQUIS 10 MG STARTED BID 11-01 SWITCHED TO ELIQUIS 10MG BID TRANSFER BACK TO [place] WHEN ACCEPTED DW RN AND PT AND CM AND FAMILY EATING A LITTLE BETTER Objective Vitals Vital Signs Date Time Temp Pulse Resp B/P (MAP) Pulse Ox O2 Delivery O2 Flow Rate FiO2 11/01/17 09:38 93 21 11/01/17 08:00 97.6 80 17 109/56 (73) 99 11/01/17 04:27 98.1 80 17 126/61 (82) 99 11/01/17 04:00 74 11/01/17 00:00 79 10/31/17 23:24 98.0 82 17 131/74 (93) 100 10/31/17 21:30 Nasal Cannula 2.00 10/31/17 20:20 98.2 72 17 114/58 (76) 100 10/31/17 20:00 84 10/31/17 16:00 100.3 90 20 119/57 (77) 100 10/31/17 16:00 87 I/O 10/31/17 10/31/17 10/31/17 11/01/17 11/01/17 11/01/17 07:00 15:00 23:00 07:00 15:00 23:00 Intake Total 0 ml 670 ml 1030 ml Output Total 200 ml 800 ml Balance 0 ml 470 ml 230 ml Intake Oral 0 ml 480 ml 200 ml IV Total 190 ml 830 ml Output Urine Total 200 ml 800 ml # Voids 2 2 1 # Bowel Movements 0 0 Result Diagram: 10/30/17 7475 10/31/17 0534 Other Results Laboratory Tests Test 10/30/17 23:55 10/31/17 05:34 10/31/17 09:15 White Blood Count 2.1 TH/MM3 Red Blood Count 2.74 MIL/MM3 Hemoglobin 8.9 GM/DL Hematocrit 25.7 % Mean Corpuscular Volume 93.8 FL Mean Corpuscular Hemoglobin 32.4 PG Mean Corpuscular Hemoglobin Concent 34.5 % Red Cell Distribution Width 13.4 % Platelet Count 250 TH/MM3 Mean Platelet Volume 7.1 FL Prothrombin Time 10.8 SEC Prothromb Time International Ratio 1.1 RATIO Activated Partial Thromboplast Time 40.6 SEC 69.2 SEC 73.7 SEC Blood Urea Nitrogen 8 MG/DL Creatinine 0.38 MG/DL Random Glucose 87 MG/DL Total Protein 6.1 GM/DL Albumin 2.3 GM/DL Calcium Level 8.4 MG/DL Alkaline Phosphatase 58 U/L Aspartate Amino Transf (AST/SGOT) 20 U/L Alanine Aminotransferase (ALT/SGPT) 18 U/L Total Bilirubin 0.4 MG/DL Sodium Level 139 MEQ/L Potassium Level 2.9 MEQ/L Chloride Level 103 MEQ/L Carbon Dioxide Level 29.2 MEQ/L Anion Gap 7 MEQ/L Estimat Glomerular Filtration Rate 163 ML/MIN Thyroid Stimulating Hormone 3rd Gen 0.113 uIU/ML Objective Remarks GENERAL: Awake and alert and oriented 3 and talkative and cooperative SKIN: Warm and dry. HEAD: Atraumatic. Normocephalic. EYES: Pupils equal and round. No scleral icterus. No injection or drainage. Extraocular muscles intact tongue is midline ENT: No nasal bleeding or discharge. Mucous membranes pink and moist. Tongue is midline NECK: Trachea midline. No JVD. Neck is supple CARDIOVASCULAR: Regular rate and rhythm. S1-S2 no S3 or S4 RESPIRATORY: No accessory muscle use. Clear to auscultation. Breath sounds equal bilaterally. GASTROINTESTINAL: Abdomen soft, non-tender, nondistended. Hepatic and splenic margins not palpable. MUSCULOSKELETAL: Extremities without clubbing, cyanosis, or edema. No obvious deformities. NEUROLOGICAL: Awake and alert. No obvious cranial nerve deficits. Motor grossly within normal limits. 4 out of 5 muscle strength in the arms and legs. Normal speech. PSYCHIATRIC: Appropriate mood and affect; insight and judgment normal. Procedures NONE Medications and IVs Current Medications Sodium Chloride 1,000 ml @ 100 mls/hr Q10H IV Last administered on 11/01/17 05:32; Start 10/30/17 at 23:32 Sodium Chloride (NS Flush) 2 ml UNSCH PRN IV FLUSH FLUSH AFTER USING IV ACCESS ; Start 10/30/17 at 23:45 Sodium Chloride (NS Flush) 2 ml BID IV FLUSH Last administered on 11/01/17 08: 51; Start 10/31/17 at 09:00 Acetaminophen (Tylenol) 650 mg Q4H PRN PO TEMP > 100.4 Last administered on 15:33; Start 10/30/17 at 23:45 Naloxone HCl (Narcan Inj) 0.4 mg UNSCH PRN IV PUSH SEE LABEL COMMENTS; Start at 23:45 Heparin Sodium/ Dextrose 250 ml @ 0 mls/hr TITRATE PRN IV Coagulation Management; Start 10/30/17 at 23:45; Status UNV Acetaminophen (Tylenol) 650 mg Q4H PRN PO PAIN SCALE 1 TO 3/temp > 100.4; Start 10/30/17 at 23:45 Aspirin (Ecotrin Ec) 81 mg BID PO Last administered on 11/01/17 08:51; Start 10/31/17 at 09:00 Carboxymethylcellulose Sodium (Refresh Tears 0.5% Opth Soln) 1 drop BID EACH EYE Last administered on 11/01/17 08:49; Start 10/31/17 at 09:00 Hydrochlorothiazide (Microzide) 12.5 mg DAILY PO Last administered on 09:07; Start 10/31/17 at 09:00 Acetaminophen/ Hydrocodone Bitart ([place] 5-325 Mg) 1 tab Q6H PRN PO PAIN SCALE 4 TO 10 Last administered on 11/01/17at 01:37; Start 10/30/17 at 23:45 Levothyroxine Sodium (Synthroid) 50 mcg DAILY@0600 PO Last administered on 11/01at 05:32; Start 10/31/17 at 06:00 Losartan Potassium (Cozaar) 25 mg DAILY PO Last administered on 10/31/17at 09:07 ; Start 10/31/17 at 09:00 Valacyclovir HCl (Valtrex) 500 mg DAILY PO Last administered on 11/01/17at 08:53 ; Start 10/31/17 at 09:00 Atorvastatin Calcium (Lipitor) 20 mg DAILY PO Last administered on 11/01/17 08 :51; Start 10/31/17 at 09:00 Lorazepam (Ativan Inj) 0.5 mg ONCE ONCE PO ; Start 10/31/17 at 00:00; Stop at 00:01; Status DC Lorazepam (Ativan) 0.5 mg ONCE ONCE PO ; Start 10/31/17 at 00:00; Stop at 01:14; Status DC Heparin Sodium/ Dextrose 250 ml @ 10 mls/hr TITRATE PRN IV Coagulation Management Last administered on 10/31/17at 00:57; Start 10/31/17 at 00:15; Stop 10/31/17 at 17:00; Status DC Magnesium Hydroxide (Milk Of Magnesia Liq) 30 ml Q12H PRN PO Mild constipation ; Start 10/31/17 at 03:15 Sennosides (Senokot) 17.2 mg Q12H PRN PO Moderate constipation; Start 10/31/17 at 03:15 Bisacodyl (Dulcolax Supp) 10 mg DAILY PRN RECTAL SEVERE CONSITIPATION; Start at 03:15 Lactulose (Lactulose Liq) 30 ml DAILY PRN PO SEVERE CONSITIPATION; Start at 03:15 Potassium Bicarb/ Potassium Chloride (K-Lyte Cl Eff) 50 meq ONCE ONCE PO Last administered on 10/31/17at 17:59; Start 10/31/17 at 15:45; Stop 10/31/17 at 15:55; Status DC Apixaban (Eliquis) 10 mg BID PO Last administered on 5/19/18at 08:51; Start at 15:45 A/P Problem List: (1) Pulmonary embolism ICD Code: I26.99 - Other pulmonary embolism without acute cor pulmonale (2) Status post left hip replacement ICD Code: Z96.642 - Presence of left artificial hip joint Status: Acute Assessment and Plan Ms. Morgan is an 82 year old female with a past medical history which includes Sjogren's syndrome,Hypertension, Hyperlipidemia, and left hip osteoarthritis who was admitted to [facility] from 10/27/17 to 10/30/17 for left hip arthroplasty with Dr. Segura on 10/27/17. She was discharged to [facility] on 10/30/17 for comprehensive rehabilitation and was transferred back to [facility] the same day for left lower lobe PE. She is admitted to the hospitalist service for medical management. Pulmonary Embolism AMS likely secondary to hypoxia - Heparin drip- SWITCH TO ELIQUIS 10MG BID FOR PE - Supplemental oxygen to maintain oxygen saturation > 92% - recheck ABG and follow results - check TSH - Continue pain control when mental status improves - avoid narcotics for now - continuous cardiac telemetry Osteoarthritis - S/P left total hip arthroplasty 10/27/[address] Segura. - PT - Bowel regimen Hypertension - Continue HCTZ, losartan - monitor BP trend Hyperlipidemia - Continue statin History of shingles affecting left eye - Continue daily Valtrex Sjogren's syndrome, chronic - Continue Refresh eye drops and monitor Hypothyroidism - Continue Synthroid Abdominal hernia - Abdominal binder as needed for patient comfort DVT prophylaxis - Heparin drip START ELIQUIS 10MG PO BID [facility] TO [facility] WHEN ACCEPTED BACK Discharge Planning [facility] [place] WHEN ACCEPTED BACK Josh Ravi DO November 01, 2017 12:36
[2017-11-01] MEDS ORDERED: APIX5TAB PO (12:50)
--- NOTE | 2017-11-01 12:53 | HHI.DS ---
Discharge Summary Admission Date October 30, 2017 at 23:10 Discharge Date: November 01, 2017 Admitting Diagnosis Pulmonary Embolism . (1) Pulmonary embolism ICD Code: I26.99 - Other pulmonary embolism without acute cor pulmonale Diagnosis: Principal (2) Status post left hip replacement ICD Code: Z96.642 - Presence of left artificial hip joint Diagnosis: Principal Status: Acute (3) HTN (hypertension) ICD Code: I10 - Essential (primary) hypertension Diagnosis: Secondary Status: Chronic (4) Osteoarthritis of left hip ICD Code: M16.12 - Unilateral primary osteoarthritis, left hip Diagnosis: Principal (5) Hypothyroidism ICD Code: E03.9 - Hypothyroidism, unspecified Diagnosis: Secondary (6) Hyperlipidemia ICD Code: E78.5 - Hyperlipidemia, unspecified Diagnosis: Secondary Status: Chronic (7) Impaired mobility and activities of daily living ICD Code: Z74.09 - Other reduced mobility Diagnosis: Principal Status: Acute Procedures NONE Brief History - From Admission Ms. Morgan is an 82 year old female with a past medical history which includes Sjogren's syndrome,Hypertension, Hyperlipidemia, and left hip osteoarthritis who was admitted to [facility] from 10/27/17 to 10/30/17 for left hip arthroplasty with Dr. Segura on 10/27/17. She was discharged to [facility] [place] on 10/30/17 for comprehensive rehabilitation and was transferred back to [facility] the same day for left lower lobe PE. She is admitted to the hospitalist service for medical management. The patient developed AMS, low grade fevers, and tachycardia while at [place]. ABGs were ordered and demonstrated hypoxia. A CT Pulmonary Angiogram was also ordered to evaluate symptoms and showed posterior left lower lobe PE along with multiple areas of emphysematous changes and mild interstitial disease at mid and upper lungs worse on the right. The patient is seen in her hospital room with her daughter and granddaughter at the bedside. The patient was given Ativan 0.5 mg IV to allow for CT scan earlier because of combative behavior. She remains sedated and minimally cooperative with examination and is noncooperative with history (history obtained from EMR). CBC/BMP: 10/30/17 2355 10/31/17 0534 Significant Findings Laboratory Tests Test 10/30/17 23:55 10/31/17 05:34 10/31/17 09:15 White Blood Count 2.1 TH/MM3 (4.0-11.0) Red Blood Count 2.74 MIL/MM3 (4.00-5.30) Hemoglobin 8.9 GM/DL (11.6-15.3) Hematocrit 25.7 % (35.0-46.0) Activated Partial Thromboplast Time 40.6 SEC (24.3-30.1) 69.2 SEC (24.3-30.1) 73.7 SEC (24.3-30.1) Creatinine 0.38 MG/DL (0.50-1.00) Total Protein 6.1 GM/DL (6.4-8.2) Albumin 2.3 GM/DL (3.4-5.0) Calcium Level 8.4 MG/DL (8.5-10.1) Potassium Level 2.9 MEQ/L (3.5-5.1) Thyroid Stimulating Hormone 3rd Gen 0.113 uIU/ML (0.358-3.740) Imaging CTA WHICH SHOWED PULMONARY EMBOLI PE at Discharge GENERAL: Awake and alert and oriented 3 and talkative and cooperative SKIN: Warm and dry. HEAD: Atraumatic. Normocephalic. EYES: Pupils equal and round. No scleral icterus. No injection or drainage. Extraocular muscles intact tongue is midline ENT: No nasal bleeding or discharge. Mucous membranes pink and moist. Tongue is midline NECK: Trachea midline. No JVD. Neck is supple CARDIOVASCULAR: Regular rate and rhythm. S1-S2 no S3 or S4 RESPIRATORY: No accessory muscle use. Clear to auscultation. Breath sounds equal bilaterally. GASTROINTESTINAL: Abdomen soft, non-tender, nondistended. Hepatic and splenic margins not palpable. MUSCULOSKELETAL: Extremities without clubbing, cyanosis, or edema. No obvious deformities. NEUROLOGICAL: Awake and alert. No obvious cranial nerve deficits. Motor grossly within normal limits. 4 out of 5 muscle strength in the arms and legs. Normal speech. PSYCHIATRIC: Appropriate mood and affect; insight and judgment normal. Hospital Course Ms. Morgan is an 82 year old female with a past medical history which includes Sjogren's syndrome,Hypertension, Hyperlipidemia, and left hip osteoarthritis who was admitted to [facility] from 10/27/17 to 10/30/17 for left hip arthroplasty with Dr. Segura on 10/27/17. She was discharged to [place] [facility] on 10/30/17 for comprehensive rehabilitation and was transferred back to [facility] the same day for left lower lobe PE. She is admitted to the hospitalist service for medical management. The patient developed AMS, low grade fevers, and tachycardia while at [place]. ABGs were ordered and demonstrated hypoxia. A CT Pulmonary Angiogram was also ordered to evaluate symptoms and showed posterior left lower lobe PE along with multiple areas of emphysematous changes and mild interstitial disease at mid and upper lungs worse on the right. The patient is seen in her hospital room with her daughter and granddaughter at the bedside. The patient was given Ativan 0.5 mg IV to allow for CT scan earlier because of combative behavior. She remains sedated and minimally cooperative with examination and is noncooperative with history (history obtained from EMR). SWITCH TO PO MEDS FOR PULM EMBOLI ADD ELIQUIS 10MG PO BID ADD BOOST TID ADD CHELSIE HOSE CONTINUE HEPARIN UNTIL ELIQUIS 10 MG STARTED BID 11-01 SWITCHED TO ELIQUIS 10MG BID TRANSFER BACK TO [place] WHEN ACCEPTED DW RN AND PT AND CM AND FAMILY EATING A LITTLE BETTER Pt Condition on Discharge: Good Discharge Disposition: Rehab Inpatient Discharge Time: > 30 minutes Discharge Instructions DIET: Follow Instructions for: As Tolerated, No Restrictions, Heart Healthy Diet Speech Therapy-Diet Recommends: Regular Activities you can perform: Weight Bearing as Suresh Follow up Referrals: Orthopedics - 1 Week with Jeff Segura MD PCP Follow-up - 2 Weeks with Fox Martin M.d. New Medications: Apixaban (Eliquis) 5 Mg Tab 10 MG PO BID for Blood Clot Prevention, #14 TAB THEN 5MG PO BID FROM THERE ON Continued Medications: Acetaminophen (Eq Acetaminophen) 325 Mg Tab 650 MG PO Q4H PRN for PAIN SCALE 1 TO 3/temp > 100.4, #[address] (Aspirin EC) 81 Mg Tabdr 81 MG PO BID for Prevent Blood Clot for 28 Days, #56 TAB 0 Refills Carboxymethylcellulose Sodium Opth Drops (Refresh Tears Opth Drops) 0.5% Drops 1 DROP EACH EYE BID Hydrochlorothiazide (Hydrochlorothiazide) 12.5 Mg Tab 12.5 MG PO DAILY, #30 TAB 0 Refills Hydrocodone/Acetaminophen (Hydrocodone-Acetamin 5-325 mg) 5 Mg-325 Mg Tablet 1 TAB PO Q6H PRN for PAIN SCALE 4 TO 10, #1 Levothyroxine (Synthroid) 50 Mcg Tab 50 MCG PO DAILY for Thyroid, #30 TAB 0 Refills Losartan (Cozaar) 25 Mg Tab 25 MG PO DAILY for Blood Pressure Management, #30 TAB 0 Refills Nutritional Supplements (Theralith Xr) 1 Tab Tab 1 TAB PO DAILY Rosuvastatin (Crestor) 10 Mg Tab 10 MG PO DAILY for Cholesterol Management, #30 TAB 0 Refills Sennosides-Docusate Sodium (Gnp Senna Plus 8.6-50 mg) 8.6 Mg-50 Mg Tab 1 TAB PO BID for 30 Days, TAB Valacyclovir (Valacyclovir) 500 Mg Tab 500 MG PO DAILY for Mgmt Viral Infection, #90 TAB 3 Refills Josh Ravi DO November 01, 2017 12:53
[2017-11-02] VITALS: BP 130/60; PULSE 76; PULSE 77; RESP 17; TEMP 98.5; O2SAT 98
--- NOTE | 2017-11-02 00:06 | RADRPT ---
EXAM DATE/TIME: 11/01/2017 22:36 [place] COMPARISON: No previous studies available for comparison. INDICATIONS : Left lower extremity pain. MEDICAL HISTORY : Hypertension. Hypercholesterolemia. Gastroesophageal reflux disease. Dyspnea. Kidney Stones. Hyp othyroidism. Sjogerens. Rheumatoid Arthritis. SURGICAL HISTORY : Appendectomy. section. Left hip arthroplasty. ENCOUNTER: Initial ACUITY: 1 day PAIN SCORE: 2/10 LOCATION: Left leg. TECHNIQUE: Venous ultrasound of the leg was performed from the inguinal ligament to the proximal calf. Real-tosin e, color Doppler and spectral tracing, compression and augmentation techniques were used. FINDINGS: There is normal compressibility of the deep venous system from the inguinal region to the proximal ca lf. No echogenic clot is seen in the lumen of the common femoral, femoral, popliteal, and posterior tibial veins. There is a normal response of the venous system to proximal and distal augmentation an d respiration. CONCLUSION: Normal examination. Yuniel Mcgrath MD on November 02, 2017 at 0:04 Board Certified Radiologist. This report was verified electronically.
[2017-11-02 04:00] VITALS: BP 130/58; PULSE 85; PULSE 88; RESP 17; TEMP 98.7; O2SAT 95
[2017-11-02] MEDS: LEVOTHYROXINE SODIUM 50 MCG TAB PO SCH (06:21)
[2017-11-02] MEDS: ACETAMINOPHEN/HYDROcodone 325 MG/5 MG TAB PO PRN (06:42)
[2017-11-02 07:32] LABS: HEMATOCRIT 22.5 % (35.0-46.0); HEMOGLOBIN 7.8 GM/DL (11.6-15.3); MEAN CELL VOLUME 94.2 FL (80.0-100.0); MEAN CORPUSCULAR HEMOGLOBIN 32.7 PG (27.0-34.0); MEAN CORPUSCULAR HGB CONC 34.7 % (32.0-36.0); MEAN PLATELET VOLUME 7.2 FL (7.0-11.0); PLATELET COUNT 292 TH/MM3 (150-450); RED BLOOD COUNT 2.39 MIL/MM3 (4.00-5.30); RED CELL DISTRIBUTION WIDTH 13.6 % (11.6-17.2)
[2017-11-02 08:00] VITALS: BP 120/56; PULSE 84; PULSE 85; RESP 20; TEMP 98.3; O2SAT 96
[2017-11-02 08:47] VITALS: O2SAT 99
[2017-11-02] MEDS: ASPIRIN EC 81 MG TABEC PO SCH (08:58)
[2017-11-02] MEDS: LOSARTAN 25 MG TAB PO SCH (08:58)
[2017-11-02] MEDS: HYDROCHLOROTHIAZIDE 12.5 MG CAP PO SCH (08:58)
[2017-11-02] MEDS: APIXABAN 5 MG TABLET PO SCH (08:58)
[2017-11-02] MEDS: valACYclovir HCL 500 MG TAB PO SCH (08:59)
[2017-11-02] MEDS: SODIUM CHLORIDE 0.9% FLUSH 10 ML FLUSH IV FLUSH SCH (08:59)
[2017-11-02] MEDS: ATORVASTATIN 20 MG TAB PO SCH (08:59)
[2017-11-02] MEDS: CARBOXYMETHYLCELL SOD 0.5% OPTH SOLN 15 ML BTL EACH EYE SCH (09:00)
== END 2017-11-02 10:08 | DRG 176 ==
LOC: N04B 23:10
PROVIDERS: ADMIT Hospitalist; ATTEND Hospitalist
DX: I26.99 Other pulmonary embolism without acute cor pulmonale (principal); B02.30 Zoster ocular disease, unspecified; I10 Essential (primary) hypertension; M35.00 Sjogren syndrome, unspecified; E03.9 Hypothyroidism, unspecified; E78.5 Hyperlipidemia, unspecified; K46.9 Unspecified abdominal hernia without obstruction or gangrene; Z74.09 Other reduced mobility; R09.02 Hypoxemia; Z96.642 Presence of left artificial hip joint; Z79.82 Long term (current) use of aspirin; Z87.891 Personal history of nicotine dependence; Z88.1 Allergy status to other antibiotic agents; Z88.2 Allergy status to sulfonamides
CPT/HCPCS: 80053; 84443; 85027; 85610; 85730; 93971; J1644; J7030